=== PATIENT | female | born 1960 | race Caucasian/White ===

== ENCOUNTER → 2017-10-27 | Outpatient (CLI) | payer SELFPAY ==
[~2017-10-27] MED LIST: NAPROSYN500 MG PO; NORCO 325 MG-51 TAB PO
== END | disposition home or self-care (01) ==
LOC: CT 07:54
DX: R10.30 Lower abdominal pain, unspecified (principal); R31.9 Hematuria, unspecified; Z90.710 Acquired absence of both cervix and uterus

== ENCOUNTER → 2018-09-27 | Outpatient (CLI) | payer OTHER | END | disposition home or self-care (01) | LOC: MRI 12:57 | DX: R51 Headache (principal); H53.8 Other visual disturbances ==

== ENCOUNTER → 2020-08-30 | Outpatient (CLI) | payer BC | END | disposition home or self-care (01) | LOC: US 08-23 14:30 | PROVIDERS: ATTEND Nurse Practitioner Women's Health | DX: R10.30 Lower abdominal pain, unspecified (principal) ==

== ENCOUNTER → 2024-04-12 | Outpatient (CLI) | payer SELFPAY | END | disposition home or self-care (01) | LOC: RAD 15:32 | PROVIDERS: ATTEND Nurse Practitioner Family | DX: J32.9 Chronic sinusitis, unspecified (principal) ==